=== PATIENT | male | born 1965 | race Hispanic/Latino ===

== ENCOUNTER 2017-05-20 15:21 | Outpatient (CLI) | payer BC ==
[2017-05-20 15:59] LABS: ALT (SGPT) 43 U/L (8-55); AST (SGOT) 25 U/L (5-34); Albumin 4.5 g/dL (3.5-5.0); Alkaline Phosphatase 118 U/L (40-150); Anion Gap 13 mmol/L (10-20); BUN (Urea Nitrogen) 14 mg/dL (8.9-20.6); Bilirubin, Total 0.4 mg/dL (0.2-1.2); Calc. Creatinine Clearance 0 mL/min (70-130); Calcium 9.7 mg/dL (7.8-10.44); Carbon Dioxide 29 mmol/L (22-29); Chloride 103 mmol/L (98-107); Estimated GFR-MDRD 83; Globulin 3.6 g/dL (2.4-3.5); Glucose 146 mg/dL (70-105); Lipase 18 U/L (8-78); Potassium 4.2 mmol/L (3.5-5.1); Protein, Total 8.1 g/dL (6.0-8.3); Sodium 141 mmol/L (136-145)
[2017-05-20 16:05] LABS: CKMB 0.7 ng/mL (0-6.6); Troponin I 0.011 ng/mL (< 0.028)
--- NOTE | 2017-05-20 18:59 | RAD ---
CHEST TWO VIEWS 05/20/17 Two views are compared with a 2003 chest film and a 2011 rib series. The heart is normal in size. There are no congestive changes or pleural effusions. The lungs seem fu lly inflated. There is a small amount of streaking to the right of the heart, probably in the region of right middle lobe. I am not convinced that this is significant. Overall, the lungs are clear. Th ere were no findings strongly suggestive as a reason for atypical chest pain. The trachea is midline . IMPRESSION: No definite acute findings. POS: HOME
== END 2017-05-20 15:22 | disposition home or self-care (01) ==
LOC: BUREKG 15:21
PROVIDERS: ATTEND Family Medicine
DX: R07.89 Other chest pain (principal)
CPT/HCPCS: 36415; 71020; 80053; 82553; 83690; 84484; 85379; 93005; 93010

== ENCOUNTER 2017-06-03 10:13 | Outpatient (CLI) | payer BC ==
[2017-06-03 12:51] LABS: #Eosinphils 0.2 thou/uL (0.0-0.7); #Lymphocytes 1.8 thou/uL (1.20-3.40); #Monocytes 0.4 thou/uL (0.11-0.59); %Basophils 0.9 % (0.0-1.0); %Eosinophils 2.9 % (0.0-10.0); %Lymphocytes 33.4 % (21.0-51.0); %Monocytes 7.2 % (0.0-10.0); %Neutrophils 55.6 % (42.0-75.0); Hemoglobin 14.9 g/dL (14.0-18.0); Mean Corpuscular HGB CONC 32.7 g/dL (32.0-36.0); Mean Corpuscular Volume 88.7 fl (80.0-94.0); Mean Platelet Volume 6.5 fL (7.4-10.4); Platelet Count 227 thou/uL (130-400); RBC Distribution Width 12.5 % (11.5-14.5); Red Blood Cell (RBC) Count 5.12 mill/uL (4.70-6.10); White Blood Cell (WBC) Count 5.4 thou/uL (4.8-10.8)
[2017-06-03 13:06] LABS: Cardiac Risk 6.3 (Less than 4.5); Cholesterol 355 mg/dl (< 200 Desired); Glucose 88 mg/dL (70-105); HDL Cholesterol 56 mg/dL (>60 Neg Risk); LDL Cholesterol, Calculated 256 mg/dL; Triglycerides 217 mg/dL (Less than 150)
[2017-06-03 14:00] LABS: Hemoglobin A1c 5.7 % (4.0-6.0)
== END 2017-06-03 10:14 | disposition home or self-care (01) ==
LOC: HPCALD 10:13
PROVIDERS: ATTEND Family Medicine
DX: R73.9 Hyperglycemia, unspecified (principal); R07.89 Other chest pain
CPT/HCPCS: 36415; 80061; 82947; 83036; 84443; 85025

== ENCOUNTER 2021-03-28 09:40 | Outpatient (CLI) | payer BC | END 2021-03-28 09:41 | disposition home or self-care (01) | LOC: BURRAD 09:40 | PROVIDERS: ATTEND Family Medicine | DX: M50.123 Cervical disc disorder at C6-C7 level with radiculopathy (principal); M25.78 Osteophyte, vertebrae | CPT/HCPCS: 72050 ==

== ENCOUNTER 2021-08-02 10:43 | Outpatient (CLI) | payer BC | END 2021-08-02 10:44 | disposition home or self-care (01) | LOC: BURRAD 10:43 | DX: M50.123 Cervical disc disorder at C6-C7 level with radiculopathy (principal) | CPT/HCPCS: 72050 ==

== ENCOUNTER 2022-07-08 09:04 | Outpatient (CLI) | payer BC ==
[2022-07-08] MEDS ORDERED: Iopamidol 370 76% 100 ML VIAL ONE (16:42)
== END 2022-07-08 09:05 | disposition home or self-care (01) ==
LOC: BURCT 09:04
PROVIDERS: ATTEND Family Medicine
DX: K52.9 Noninfective gastroenteritis and colitis, unspecified (principal)
CPT/HCPCS: 74177; Q9967